=== PATIENT | male | born 1950 | race Caucasian/White ===

== ENCOUNTER 2024-02-17 09:15 | Outpatient (AMB) | payer MEDICARE, SELFPAY ==
--- NOTE | 2024-02-17 09:16 | HO.NEPHOV_ITS ---
Vital Signs 02/17/24 09:19 Height 5 ft 9 in Weight 259 lb 6 oz BMI 38.3 BP 142/84 H Blood Pressure Location Lt brachial Position Sitting Pulse 84 Pulse Source Pulse Oximeter Pulse Oximetry (%) 96 Oxygen Delivery Method Room Air Intake Visit Reasons: Continuing care- HTN/ Conf Health Information Director Required: No Accompanied by: Self / Same As Patient Allergies lisinopril Allergy (Mild, Verified 02/17/24 09:20) Cough Medication List - Last Reconciled 02/17/24 by Rustam Pastrana MD atorvastatin 10 mg PO QPM calcipotriene 0.005% 1 appl topical DAILY calcium carbonate 600 mg PO DAILY cholecalciferol (vitamin D3) 50 mcg PO DAILY clobetasol 0.05% 1 appl topical BID coenzyme Q10 (Co Q-10) 10 mg PO DAILY diclofenac sodium 1% (Arthritis Pain (diclofenac)) 2 grams topical QID losartan 100 mg PO DAILY omega-3 fatty acids-fish oil 360-1,200 mg (Fish Oil) 1 cap PO DAILY sertraline 100 mg PO DAILY spironolacton-hydrochlorothiaz 25-25 mg 1 tab PO DAILY verapamil ER 300 mg PO BEDTIME HPI Comments Details: 71-year-old man with a history of hypertension. He is here for annual follow-up. He underwent left ankle replacement and is doing reasonably well. He has gained some weight. Overall he is doing well without any new complaints. Review of Systems Const Denies fever(s) and Denies weight loss Card Denies chest pain Resp Denies cough and Denies hemoptysis GI Denies abdominal pain, Denies diarrhea and Denies nausea Musc Denies back pain Neuro Denies focal weakness Physical Exam Vital Signs: Last Vital Signs Pulse 84 02/17/24 09:19 BP 142/84 H 02/17/24 09:19 Pulse Ox 96 02/17/24 09:19 Oxygen Delivery Method Room Air 02/17/24 09:19 BMI result Body Mass Index 38.3 Awake. Comfortable. Neck is supple. Mucosa moist. Lungs air entry equal Heart S1-S2 heard no gallop. Abdomen soft. Extremities no edema. No involuntary movements. No myoclonus. Results Reviewed Results Reviewed: Labs from 12/29/2023 were reviewed Nephrology Results: No Data to Display Assessment & Plan Assessment & Plan (1) HTN (hypertension): Code(s): I10 - Essential (primary) hypertension Category: Medical Plan 71-year-old man with well-controlled hypertension. At this point we will continue with current medications. Encouraged him to stand low-sodium diet. You should limit alcohol intake. We discussed various options for weight loss including decreasing carbohydrate intake. Basic lab work ordered for today. All his questions were answered Orders: Orders Basic Metabolic Panel 3 Months I10 - Essential (primary) hypertension Medications: New spironolacton-hydrochlorothiaz 25-25 mg 1 tab PO DAILY 90 tabs 0RF Coding Level of Care Code Est Pt Level 3 (11628) Diagnoses HTN (hypertension) I10
[2024-02-17 09:19] VITALS: BP 142/84; PULSE 84; O2SAT 96; BMI 38.3
== END 2024-02-17 09:46 | disposition home or self-care (01) ==
PROVIDERS: PCP Nurse Practitioner Adult Health; Visit Provider Internal Medicine Hypertension Specialist
DX: I10 Essential (primary) hypertension (principal)
CPT/HCPCS: 99213

== ENCOUNTER → 2024-02-17 09:15 | Outpatient (BNVA) | payer MEDICARE, SELFPAY | PROVIDERS: PCP Nurse Practitioner Adult Health; Visit Provider Internal Medicine Hypertension Specialist | DX: I10 Essential (primary) hypertension (principal) | CPT/HCPCS: 99212 ==

== ENCOUNTER 2025-03-08 10:42 | Outpatient (AMB) | payer MEDICARE, SELFPAY ==
--- NOTE | 2025-03-08 10:46 | HO.NEPHOV_ITS ---
Vital Signs 03/08/25 10:47 Height 5 ft 9 in Weight 260 lb BMI 38.4 BP 122/76 Blood Pressure Location Lt brachial Position Sitting Pulse 87 Pulse Source Pulse Oximeter Pulse Oximetry (%) 96 Oxygen Delivery Method Room Air Intake Visit Reasons: 1yr follow up HTN Methods And Procedures Analyst Required: No Accompanied by: Self / Same As Patient Allergies lisinopril Allergy (Mild, Verified 02/17/24 09:20) Cough Medication List - Last Reconciled 03/08/25 by Rustam Pastrana MD atorvastatin 10 mg PO QPM calcipotriene 0.005% 1 appl topical DAILY calcium carbonate 600 mg PO DAILY cholecalciferol (vitamin D3) 50 mcg PO DAILY coenzyme Q10 (Co Q-10) 10 mg PO DAILY diclofenac sodium 1% (Arthritis Pain (diclofenac)) 2 grams topical QID losartan 100 mg PO DAILY omega-3 fatty acids-fish oil 360-1,200 mg (Fish Oil) 1 cap PO DAILY sertraline 100 mg PO DAILY spironolactone 25 mg PO DAILY tramadol 50 mg PO Q6H verapamil ER 300 mg PO BEDTIME HPI Comments Details: 71-year-old man with a history of hypertension. He is here for annual follow-up. He underwent left ankle replacement and is doing reasonably well. He has gained some weight. Overall he is doing well without any new complaints. 03/08/25 - The patient is a 74-year-old male presenting with lower back pain and hyponatremia. - Lower back pain due to sacroiliac joint dysfunction, worsened by yard work. - Managed with intensive care unit nurse, diclofenac gel, and Tylenol. - Hyponatremia linked to hydrochlorothiazide use, advised to discontinue. - Benign prostatic hyperplasia suspected, with nocturia and urgency. Physical Exam Vital Signs: Last Vital Signs Pulse 87 03/08/25 10:47 BP 122/76 03/08/25 10:47 Pulse Ox 96 03/08/25 10:47 Oxygen Delivery Method Room Air 03/08/25 10:47 BMI result Body Mass Index 38.4 Comfortable Neck supple no JVD. Lungs entry equal no rales. Heart S1-S2 heard no gallop or rub. Abdomen soft nontender. Neuro alert awake oriented. No asterixis. Extremities no edema. Results Reviewed Results Reviewed: Labs from 12/29/2023 were reviewed 03/06/25 BUN 15 Cr 0.88 Na 131 Assessment & Plan Assessment & Plan (1) HTN (hypertension): Code(s): I10 - Essential (primary) hypertension Category: Medical (2) Hyponatremia: Code(s): E87.1 - Hypo-osmolality and hyponatremia Category: Medical Plan 71-year-old man with well-controlled hypertension. At this point we will continue with current medications. Encouraged him to stand low-sodium diet. You should limit alcohol intake. We discussed various options for weight loss including decreasing carbohydrate intake. Basic lab work ordered for today. All his questions were answered 1. Lower Back Pain Due To Sacroiliac Joint Dysfunction - Continue intensive care unit nurse and diclofenac gel. - Use Tylenol and tramadol as needed. 2. Hyponatremia - Discontinue hydrochlorothiazide. - Recheck sodium levels in 3-4 weeks. 3. Benign Prostatic Hyperplasia - Monitor symptoms and PSA test ordered by PCP. Orders: Orders Basic Metabolic Panel 4 Weeks E87.1 - Hypo-osmolality and hyponatremia Medications: New spironolactone 25 mg PO DAILY 90 tabs 1RF Patient Instructions: Patient Instructions - Continue using diclofenac gel and Tylenol for back pain. - Use tramadol only if needed, starting with a low dose. - Stop taking hydrochlorothiazide and monitor sodium levels. - Schedule a PSA test during the next primary care visit. Coding Level of Care Code Est Pt Level 4 (65540) Diagnoses HTN (hypertension) I10 Hyponatremia E87.1
[2025-03-08 10:47] VITALS: BP 122/76; PULSE 87; O2SAT 96; BMI 38.4
--- OUTSIDE RECORDS SUMMARY | 2025-03-08 13:20 | XMS_ITS ---
Author Name [facility] Organization Unknown Care Team Organization Name Specialty Phone Email Start Date End Da te [facility] Termed, [facility] Primary [facility] 03/18/202212/09
== END 2025-03-08 11:09 | disposition home or self-care (01) ==
LOC: HO.HKAS 10:42
PROVIDERS: PCP Nurse Practitioner Adult Health; Visit Provider Internal Medicine Hypertension Specialist
DX: I10 Essential (primary) hypertension (principal); E87.1 Hypo-osmolality and hyponatremia
CPT/HCPCS: 99214

== ENCOUNTER → 2025-03-08 10:42 | Outpatient (BNVA) | payer MEDICARE, SELFPAY | PROVIDERS: PCP Nurse Practitioner Adult Health; Visit Provider Internal Medicine Hypertension Specialist | DX: I10 Essential (primary) hypertension (principal); E87.1 Hypo-osmolality and hyponatremia | CPT/HCPCS: 99212 ==